=== PATIENT | male | born 1940 | race Caucasian/White ===

== ENCOUNTER → 2021-08-15 | Outpatient (CLI) | payer MEDICARE, OTHER ==
--- NOTE | 2021-08-16 05:18 | MR ---
EXAMINATION TYPE: MR kidney wo/w con DATE OF EXAM: 08/15/2021 COMPARISON: None HISTORY: Left renal atypical cyst. CONTRAST: Standard multiplanar, multisequence MRI departmental protocol images were obtained without contrast a nd with 9 mL intravenous Gadavist gadolinium contrast. Multiplanar multiecho imaging of the abdomen performed without and with IV contrast. There are bilateral renal cortical cysts that are mainly on the left side. These measure up to 3 cm. One of the rounded lesions lower pole left kidney has decreased signal on the T2 images and has mixed signal on the T1 images. The contrast images show no enhancement. The wall is thin. This is consiste nt with a cyst containing calcium and protein. There is no hydronephrosis. Gallbladder appears normal. There is no evidence of discrete liver mass. The bile ducts are not dilated. Pancreas appears normal. There is no evidence of pleural effusion. Heart size is normal. Spleen is intact. There is no sign of retroperitoneal adenopathy. IMPRESSION: Atypical cyst 3 cm lower pole atypical left kidney containing calcium and not changed in appearance c ompared to CT scan of 01/31/2021. No enhancement seen to suggest a tumor.
== END | disposition home or self-care (01) ==
LOC: RADMRIMAIN 09:09
PROVIDERS: ATTEND Urology
DX: N28.1 Cyst of kidney, acquired (principal)
CPT/HCPCS: 74183; A9585